=== PATIENT | female | born 1980 | race African-American/Black ===

== ENCOUNTER 2017-02-13 08:25 | Emergency (ER) | payer OTHER ==
[~2017-02-13] VITALS: Ht 157.5 cm; Wt 96.0 kg
[~2017-02-13 08:25] MED LIST: ALBUTEROL SULF8.5 GM IH; AMOXICILLIN875 MG PO; ANTIVERT25 MG PO; CLINDAMYCIN HC150 MG PO; FLEXERIL10 MG PO; NAPROSYN500 MG PO; NOHOMEMEDS; PERCOCET 5/31 TABLET PO; PERIDEX1 ML MM; PREDNISONE20 MG PO; ULTRAM50 MG PO; ZITHROMAX Z-PA250 MG PO; ZITHROMAX250 MG PO; ZOFRAN4 MG PO
[2017-02-13 09:31] LABS: MCH 26.1 PG (29.0-34.0); MCHC 32.4 G/DL (30.0-36.0); MCV 80.4 FL (83-99); MEAN PLAT.VOLUME 11.7 uM^3 (9.5-12.4); PLATELET COUNT 187 K/uL (156-360); RBC DIS.WIDTH-CV 14.5 % (11.8-14.6); RBC DIS.WIDTH-SD 41.9 % (39-53); WHITE BLOOD COUNT 7.2 K/uL (4.1-10.2)
[2017-02-13 09:41] LABS: CHLORIDE 107 mEq/L (99-109); POTASSIUM 3.7 mEq/L (3.7-5.4); SODIUM 139 mEq/L (136-147)
[2017-02-13 09:43] LABS: GLUCOSE 82 mg/dL (70-99)
[2017-02-13 09:44] LABS: ANION GAP 6 MEQ/L (2-14)
[2017-02-13 09:45] LABS: TOTAL BILIRUBIN 0.3 mg/dL (0.0-1.0)
[2017-02-13 09:46] LABS: ALKALINE PHOSPHATASE 65 IU/L (3-129)
[2017-02-13 09:47] LABS: GFR ESTIMATE (CALCULATED) > 59 mL/min/
[2017-02-13 09:48] LABS: UREA NITROGEN (BUN) 6 mg/dL (9-23)
[2017-02-13 09:58] LABS: ADD MIUA? YES; BILIRUBIN NEGATIVE; BLOOD MODERATE; COLOR YELLOW ((YELLOW)); GLUCOSE (STRIP) NEGATIVE; KETONES NEGATIVE; LEUKOCYTES NEGATIVE; NITRITE NEGATIVE; PROTEIN (STRIP) NEGATIVE; SPECIFIC GRAVITY 1.018 (1.000-1.030); UROBILINOGEN 0.2 MG/DL (0.2-1.0)
[2017-02-13 10:13] LABS: BACTERIA RARE /HPF; EPITHELIAL CELLS RARE /HPF; INTERNAL CONTROL VALID? YES; MUCUS TRACE /LPF; UCUL ADDED? NO; WHITE BLOOD CELLS 0-5 /HPF (0-5)
[2017-02-13] MEDS ORDERED: FLONASE16 G1 BOTH NARES (10:27)
[2017-02-13 10:54] VITALS: BP 121/83
== END 2017-02-13 10:56 | disposition home or self-care (01) ==
LOC: EME 08:25
PROVIDERS: Nurse Practitioner Family
DX: R53.83 Other fatigue (principal); J30.2 Other seasonal allergic rhinitis; R42 Dizziness and giddiness; F43.9 Reaction to severe stress, unspecified; N92.6 Irregular menstruation, unspecified; R51 Headache; R19.7 Diarrhea, unspecified; R11.0 Nausea; M25.473 Effusion, unspecified ankle; M25.579 Pain in unspecified ankle and joints of unspecified foot; I49.8 Other specified cardiac arrhythmias
CPT/HCPCS: 80053; 81003; 84703; 85027; 93005; 99281; 99284

== ENCOUNTER 2017-08-23 21:41 | Observation (INO) | payer OTHER ==
[~2017-08-23] VITALS: Ht 154.9 cm; Wt 90.4 kg
[~2017-08-23 21:41] MED LIST changes: +FLONASE16 G1 BOTH NARES
[2017-08-23 23:27] LABS: HEMATOCRIT 38.3 % (36.0-46.0); HEMOGLOBIN 12.5 G/DL (11.9-15.5); MCH 26.3 PG (29.0-34.0); MCHC 32.6 G/DL (30.0-36.0); MCV 80.6 FL (83-99); PLATELET COUNT 209 K/uL (156-360); RBC DIS.WIDTH-CV 14.7 % (11.8-14.6); RBC DIS.WIDTH-SD 43.6 % (39-53); RED BLOOD COUNT 4.75 M/uL (3.80-5.20); WHITE BLOOD COUNT 10.3 K/uL (4.1-10.2)
[2017-08-23 23:35] LABS: CHLORIDE 107 mEq/L (99-109); POTASSIUM 3.8 mEq/L (3.7-5.4); SODIUM 142 mEq/L (136-147)
[2017-08-23 23:36] LABS: GLUCOSE 90 mg/dL (70-99)
[2017-08-23 23:40] LABS: CREATININE 0.7 mg/dL (0.6-1.3); GFR ESTIMATE (CALCULATED) > 59 mL/min/
[2017-08-23 23:41] LABS: UREA NITROGEN (BUN) 10 mg/dL (9-23)
[2017-08-23 23:47] LABS: TROP-I INTERPRETATION NEGATIVE; TROPONIN-I < 0.01 ng/mL (0.0-0.30)
[2017-08-23 23:50] LABS: QUANTITATIVE HCG < 4.0 MIU/ML
[2017-08-24] MEDS ORDERED: PRENATAL GUMMI1 EACH PO (01:00)
[2017-08-24 02:40] VITALS: BP 126/70
[2017-08-24 02:48] LABS: HDL CHOLESTEROL 47 MG/DL (Desirable>=50); LDL CHOLESTEROL 76 mg/dL (Desirable<100); NON-HDL CHOLESTEROL 89 mg/dL (Desirable<160); TOTAL CHOLESTEROL 136 mg/dL (Desirable<200); TRIGLYCERIDES 66 MG/DL (Normal: <150)
[2017-08-24 05:45] LABS: HEMATOCRIT 34.8 % (36.0-46.0); HEMOGLOBIN 11.1 G/DL (11.9-15.5); MCH 25.6 PG (29.0-34.0); MCHC 31.9 G/DL (30.0-36.0); MCV 80.4 FL (83-99); PLATELET COUNT 187 K/uL (156-360); RBC DIS.WIDTH-CV 14.7 % (11.8-14.6); RBC DIS.WIDTH-SD 43.4 % (39-53); RED BLOOD COUNT 4.33 M/uL (3.80-5.20); WHITE BLOOD COUNT 8.7 K/uL (4.1-10.2)
[2017-08-24 06:12] LABS: ALBUMIN 3.3 G/DL (3.2-4.8); ALKALINE PHOSPHATASE 53 IU/L (3-129); ALT (GPT) 8 IU/L (3-49); AST (GOT) 12 IU/L (2-34); CHLORIDE 106 MEQ/L (99-109); CREATININE 0.7 MG/DL (0.6-1.3); GFR ESTIMATE (CALCULATED) > 59 mL/min/; GLUCOSE 78 mg/dL (70-99); POTASSIUM 3.4 MEQ/L (3.7-5.4); SODIUM 140 MEQ/L (136-147); TOTAL BILIRUBIN 0.4 MG/DL (0.0-1.0); TOTAL PROTEIN 5.6 G/DL (6.4-8.3); UREA NITROGEN (BUN) 8 mg/dL (9-23)
[2017-08-24 07:34] VITALS: BP 112/77
[2017-08-24 10:48] VITALS: BP 137/91
[2017-08-24] MEDS ORDERED: ANTIVERT25 MG PO (14:25)
[2017-08-24 15:56] VITALS: BP 155/75
== END 2017-08-24 19:24 | disposition home or self-care (01) ==
LOC: EME 21:41 → 5WEST 08-24 00:42 → EDOF 08-24 00:42 → ENRESERV 08-24 00:44 → 5WEST 08-24 02:28
PROVIDERS: Emergency Medicine; Internal Medicine
DX: H81.10 Benign paroxysmal vertigo, unspecified ear (principal); R20.2 Paresthesia of skin; R20.0 Anesthesia of skin; R53.1 Weakness; R11.2 Nausea with vomiting, unspecified; R27.0 Ataxia, unspecified; Z87.828 Personal history of other (healed) physical injury and trauma; Z82.3 Family history of stroke; Z82.49 Family history of ischemic heart disease and other diseases of the circulatory system; Z83.49 Family history of other endocrine, nutritional and metabolic diseases; Z88.0 Allergy status to penicillin; Z88.5 Allergy status to narcotic agent; Z88.8 Allergy status to other drugs, medicaments and biological substances
CPT/HCPCS: 70450; 70544; 70549; 70551; 72141; 80048; 80053; 80061; 83036; 84484; 84702; 85027; 93005; 93306; 99281; 99285; G0378